=== PATIENT | male | born 1970 | race Caucasian/White ===

== ENCOUNTER 2022-08-26 07:00 | Day surgery (SDC) | payer OTHER ==
[~2022-08-26] VITALS: Ht 165.1 cm; Wt 66.2 kg
[2022-08-26] MEDS ORDERED: diphenhydrAMINE 50 MG/ML VIAL ONE (07:49)
[2022-08-26] MEDS ORDERED: MIDAZOLAM 2 MG/2 ML VIAL ONE (07:50)
[2022-08-26] MEDS ORDERED: fentaNYL citrate 0.05 MG/ML VIAL ONE (07:50)
[2022-08-26] MEDS: MIDAZOLAM 2 MG/2 ML VIAL IVP ONE (08:05)
[2022-08-26] MEDS: fentaNYL citrate 0.05 MG/ML VIAL IVP ONE (08:06)
[2022-08-26] MEDS: diphenhydrAMINE 50 MG/ML VIAL IVP ONE (08:08)
[2022-08-26] MEDS: LIDOCAINE 2% 100 MG/5 ML UJET TP ONE (08:10)
== END 2022-08-26 10:29 | disposition home or self-care (01) ==
LOC: MDS 07:00 → MMU 07:01 → MDS 10:29
PROVIDERS: ATTEND Internal Medicine Gastroenterology
DX: K62.5 Hemorrhage of anus and rectum (principal); K59.00 Constipation, unspecified; Z20.822 Contact with and (suspected) exposure to COVID-19
CPT/HCPCS: 45378; 87426; J1200; J2250; J3010